=== PATIENT | female | born 2000 ===

== ENCOUNTER 2021-03-11 11:41 | Emergency (ER) | payer SELFPAY ==
[2021-03-11 12:43] VITALS: BP 132/63
--- NOTE | 2021-03-11 14:33 | Emergency Department Report ---
ED Fall HPI - General Chief Complaint: Fall Stated Complaint: RGHT LEG PAIN X3 DAYS Time Seen by Provider: 03/11/21 14:17 Source: patient Mode of arrival: Ambulatory - History of Present Illness Initial Comments: 21-year-old female presents to the ER today with complaints of right hip and right thigh pain after that accidental ground-level fall 2 days ago. Patient states that she was walking to her bathroom, she was wearing crocs and it was slippery on the floor when she slipped and fell landing on that right side. She states that she did notice some swelling to the area but no apparent bruising, no open wounds or erythema. She reports pain with movement of the hip and with ambulation. She has been taking [id number] ibuprofen, applying ice and heat with mild improvement of her symptoms. She denies any head injury. She denies any prior injury to the hip or SI. She reports no additional symptoms at this time. MD Complaint: fall, other (right hip/thigh pain ) -: days(s) (1) - Related Data Previous Rx's Medication Instructions Recorded Last Taken Type Ketorolac [Toradol] 10 mg PO Q6H PRN #20 03/11/21 Unknown Rx Allergies Allergy/AdvReac Type Severity Reaction Status Date / Time No Known Allergies Allergy Verified 03/11/21 12:39 ED Review of Systems ROS: Stated complaint: RGHT LEG PAIN X3 DAYS Other details as noted in HPI Comment: All other systems reviewed and negative Constitutional: no symptoms reported Eyes: denies: eye pain, eye discharge, vision change ENT: denies: ear pain, throat pain Respiratory: denies: cough, shortness of breath, SOB with exertion, SOB at rest, wheezing Cardiovascular: denies: chest pain, palpitations, dyspnea on exertion, edema, syncope, paroxysmal nocturnal dyspnea Gastrointestinal: denies: abdominal pain, nausea, diarrhea, constipation, hematemesis, melena, hematochezia Genitourinary: denies: urgency, dysuria, frequency, hematuria, discharge, abnormal menses, dyspareunia Musculoskeletal: joint swelling, arthralgia, myalgia Skin: denies: rash, lesions Neurological: denies: headache, weakness, numbness, paresthesias, confusion, abnormal gait, vertigo Psychiatric: denies: anxiety, depression, auditory hallucinations, visual hallucinations, homicidal thoughts Hematological/Lymphatic: denies: easy bleeding, easy bruising ED Past Medical Hx - Past Medical History Previous Medical History?: No - Surgical History Past Surgical History?: No - Medications Home Medications: Home Medications Medication Instructions Recorded Confirmed Last Taken Type Ketorolac [Toradol] 10 mg PO Q6H PRN #20 03/11/21 Unknown Rx ED Physical Exam - General Limitations: No Limitations General appearance: alert, in no apparent distress, obese - Head Head exam: Present: atraumatic, normocephalic, normal inspection - Eye Eye exam: Present: normal appearance, PERRL, EOMI Pupils: Present: normal accommodation - Neck Neck exam: Present: normal inspection, full ROM. Absent: meningismus - Respiratory Respiratory exam: Present: normal lung sounds bilaterally. Absent: respiratory distress, wheezes, rales, rhonchi, stridor - Cardiovascular Cardiovascular Exam: Present: regular rate, normal rhythm, normal heart sounds - Extremities Exam Extremities exam: Present: normal inspection, full ROM, normal capillary refill, other (Mild ttp right anterior hip and right lat thigh; These areas were normal to inspection; Mild pain with ROM of hip but otherwise normal; Knee exam unremarkable ). Absent: pedal edema, joint swelling - Neurological Exam Neurological exam: Present: alert, oriented X3, CN II-XII intact, normal gait - Psychiatric Psychiatric exam: Present: normal affect, normal mood - Skin Skin exam: Present: intact ED Course Vital Signs 03/11/21 12:40 Temperature 98.4 F Pulse Rate 88 Respiratory 16 Rate Blood Pressure 132/63 [Left] O2 Sat by Pulse 99 Oximetry ED Medical Decision Making - Radiology Data Radiology results: report reviewed Patient: JORDYN PALMER MR#: [id number] 78 : 2000 Acct:[id number] Age/Sex: 21 / F ADM Date: 03/11/21 Loc: ED Attending Dr: Ordering Physician: FRANKIE CHOWDARY Date of Service: 03/11/21 Procedure(s): XR femur 2+V RT Accession Number(s): [id number] cc: FRANKIE CHOWDARY Fluoro Time In Minutes: RIGHT HIP 2 VIEWS INDICATION: fall/pain. COMPARISON: None. IMPRESSION: No acute osseous or soft tissue abnormality. No significant DJD. RIGHT FEMUR 2 VIEWS INDICATION: fall/pain. COMPARISON: None. IMPRESSION: No acute osseous or soft tissue abnormality. Signer Name: Boo Munoz Jr, MD Signed: 03/11/2021 3:28 PM Workstation Name: [email or web address] Transcribed By: TTR Dictated By: BOO MUNOZ JR, MD Electronically Authenticated By: BOO MUNOZ JR, MD Signed Date/Time: 03/11/211527 DD/ 26 TD/TT: Critical care attestation.: If time is entered above; I have spent that time in minutes in the direct care of this critically ill patient, excluding procedure time. ED Disposition Clinical Impression: Contusion of leg Disposition: HOME / SELF CARE / HOMELESS Is pt being admited?: No Does the pt Need Aspirin: No Condition: Stable Instructions: Contusion, [id number] Additional Instructions: Take the toradol as prescribed to help with pain. Continue apply ice to help with pain. Follow up with Ortho if symptoms persist x 1 week. Return to ED if worse. Prescriptions: Ketorolac [Toradol] 10 mg PO Q6H PRN #20 PRN Reason: Pain Referrals: SOL MENDOZA MD [Staff Physician] - 7-10 days Forms: Work/School Release Form(ED) Time of Disposition: 15:45
--- NOTE | 2021-03-11 15:32 | XRay Report ---
RIGHT HIP 2 VIEWS INDICATION: fall/pain. COMPARISON: None. IMPRESSION: No acute osseous or soft tissue abnormality. No significant DJD. RIGHT FEMUR 2 VIEWS INDICATION: fall/pain. COMPARISON: None. IMPRESSION: No acute osseous or soft tissue abnormality. Signer Name: Boo Munoz Jr, MD Signed: 03/11/2021 3:28 PM Workstation Name: [id number]
== END 2021-03-11 16:30 | disposition home or self-care (01) ==
LOC: ED 11:41
DX: S80.11XA Contusion of right lower leg, initial encounter (principal); W19.XXXA Unspecified fall, initial encounter; Y93.89 Activity, other specified; Y92.89 Other specified places as the place of occurrence of the external cause; Y99.8 Other external cause status
CPT/HCPCS: 99283